=== PATIENT | male | born 1970 | race Two or more races ===

== ENCOUNTER 2016-05-14 08:13 | Emergency (ER) | payer OTHER ==
[~2016-05-14] VITALS: Ht 180.3 cm; Wt 61.2 kg
[2016-05-14] MEDS ORDERED: LORazepam Inj 2mg/ml 1ml IV ONE (08:30)
[2016-05-14] MEDS ORDERED: DiphenhydrAMINE 50mg/ml Inj IVP ONE (08:30)
[2016-05-14 08:50] VITALS: BP 158/88
[2016-05-14 09:00] LABS: BASOPHILS % (AUTO) 0.7 % (0.0-2.0); EOSINOPHILS % (AUTO) 1.4 % (0.0-3.0); LYMPHOCYTES % (AUTO) 23.1 % (20.0-45.0); MEAN CORPUSCULAR HEMOGLOBIN 33.1 PG (27.0-31.0); MEAN CORPUSCULAR HGB CONC 33.7 G/DL (32.0-36.0); MEAN CORPUSCULAR VOLUME 98 FL (80-99); MEAN PLATELET VOLUME 6.1 FL (6.5-10.1); MONOCYTES % (AUTO) 6.8 % (1.0-10.0); NEUTROPHILS % (AUTO) 67.9 % (45.0-75.0); PLATELET COUNT 288 K/UL (150-450); RED BLOOD COUNT 4.58 M/UL (4.70-6.10); RED CELL DISTRIBUTION WIDTH 10.7 % (11.6-14.8); WHITE BLOOD COUNT 9.7 K/UL (4.8-10.8)
[2016-05-14] MEDS ORDERED: Midazolam 2mg/2ml Inj IVP ONE (09:00)
--- NOTE | 2016-05-14 09:24 | Emergency Room Report ---
History of Present Illness General Chief Complaint: Abdominal Pain Source: Patient Present Illness HPI Patient presents with complaints of abdominal pain Patient arrives yelling and screaming in the waiting room and in his emergency room When talking to the patient, patient is able to calm his voice and speak appropriately, however again patient becomes extremely histrionic, and screaming when the nurse or myself leave the room. Other patient's in the emergency department became extremely agitated and yelling at the patient to calm down We did try to control the situation, however the patient continues to scream Yelling that he needs Dilaudid When attempting to speak to the patient further, he screams out that he will be calling [employer] and continues to make threatening remarks to staff and towards myself I attempted to tell the patient that we will be trying to control his pain, however I needed to obtain simple information regarding where the pain was He does point to his left lower abdomen And again when discussing this, patient is able to be calm and have appropriate speech. Patient was also allowed to bring his guide dog to the bedside However as the patient's dog began to wander in 2 different patient's rooms and posterior danger to other people in the emergency room, the staff requested that the guide dog, be under the care of the patient's Allergies: Coded Allergies: No Known Allergies (Unverified , 04/12/16) Patient History Past Medical History: see triage record Pertinent Family History: none Reviewed Nursing Documentation: PMH: Agreed, PSxH: Agreed Nursing Documentation-[facility] Past Medical History: No History, Except For Hx Gastrointestinal Problems: Yes - Diverticulitis; crohns Review of Systems All Other Systems: limited - Patient's history was initially somewhat difficult to obtain fully patient was histrionic, yelling and screaming, there was no reports of fevers, unknown regarding vomiting, unknown regarding diarrhea , Physical Exam Vital Signs Date Time Temp Pulse Resp B/P Pulse Ox O2 Delivery O2 Flow Rate FiO2 05/14/16 08:16 98.4 103 24 160/97 98 Room Air Sp02 EP Interpretation: reviewed, normal General Appearance: other - Patient presents extremely histrionic Head: normocephalic, atraumatic Eyes: bilateral eye other - Patient is blind ENT: normal pharynx, no angioedema Neck: supple, thyroid normal Respiratory: lungs clear, normal breath sounds Cardiovascular #1: regular rate, rhythm Gastrointestinal: other - Patient has a soft abdomen and normal bowel sounds, however subjectively diffuse discomfort and pain, Musculoskeletal: other - no obvious focal deficit Neurologic: alert, oriented x3, responsive Skin: no rash, warm/dry Medical Decision Making Diagnostic Impression: Primary Impression: Abdominal pain ER Course Given the patient's presentation and previous history multiple differentials are considered Including but not limited to diverticulitis Crohn's flare, appendicitis Patient had initially medications dispensed for his discomfort Upon further discussion patient has had fairly poor outpatient followup with specialty consultation And was recommended for the patient to be admitted He initially agreed to this after a fairly extensive discussion with the patient Upon time of admission was notified of the patient had pulled his IV out and wanted to go home After returning to her room patient states that he was under the impression that he was being discharged Patient's presentation today is extremely concerning His behavior throughout the stay at the end as well raises concerns I did make contact with the patient's HMO, and he was at the other facility recently as well with pancreatitis, I'm not clear the specifics of that hospitalization Patient's occurs highly to get set and be seen by his primary physician He states that he also has a pain management physician which was not initially divulged, Labs Test 05/14/16 08:45 White Blood Count 9.7 K/UL (4.8-10.8) Red Blood Count 4.58 M/UL (4.70-6.10) Hemoglobin 15.2 G/DL (14.2-18.0) Hematocrit 45.1 % (42.0-52.0) Mean Corpuscular Volume 98 FL (80-99) Mean Corpuscular Hemoglobin 33.1 PG (27.0-31.0) Mean Corpuscular Hemoglobin Concent 33.7 G/DL (32.0-36.0) Red Cell Distribution Width 10.7 % (11.6-14.8) Platelet Count 288 K/UL (150-450) Mean Platelet Volume 6.1 FL (6.5-10.1) Neutrophils (%) (Auto) 67.9 % (45.0-75.0) Lymphocytes (%) (Auto) 23.1 % (20.0-45.0) Monocytes (%) (Auto) 6.8 % (1.0-10.0) Eosinophils (%) (Auto) 1.4 % (0.0-3.0) Basophils (%) (Auto) 0.7 % (0.0-2.0) Sodium Level 143 mEQ/L (135-145) Potassium Level 3.8 mEQ/L (3.4-4.9) Chloride Level 101 mEQ/L (98-107) Carbon Dioxide Level 24 mEQ/L (20-30) Anion Gap 18 (5-15) Blood Urea Nitrogen 14 mg/dL (7-23) Creatinine 1.1 mg/dL (0.7-1.2) Estimat Glomerular Filtration Rate > 60 mL/min (>60) Glucose Level 116 mg/dL (74-106) Calcium Level 9.3 mg/dL (8.6-10.2) Total Bilirubin 0.4 mg/dL (0.0-1.2) Aspartate Amino Transf (AST/SGOT) 20 U/L (5-40) Alanine Aminotransferase (ALT/SGPT) 15 U/L (3-41) Alkaline Phosphatase 71 U/L (40-129) Total Protein 7.6 g/dL (6.6-8.7) Albumin 4.4 g/dL (3.5-5.2) Globulin 3.2 g/dL Albumin/Globulin Ratio 1.3 (1.0-2.7) Last Vital Signs Date Time Temp Pulse Resp B/P Pulse Ox O2 Delivery O2 Flow Rate FiO2 05/14/16 08:16 98.4 103 24 160/97 98 Room Air Status: improved Disposition: HOME, SELF-CARE Condition: Improved Scripts Famotidine (PEPCID) 20 Mg Tablet 20 MG ORAL BEDTIME, #7 TAB 0 Refills Prov: BUDDY RODRIGUEZ D.O. 05/14/16 Referrals: NON PHYSICIAN (PCP) BUDDY RODRIGUEZ D.O. May 14, 2016 09:24
[2016-05-14 09:29] LABS: ALANINE AMINOTRANSFERASE 15 U/L (3-41); ALBUMIN/GLOBULIN RATIO 1.3 (1.0-2.7); ANION GAP 18 (5-15); ASPARTATE AMINO TRANSFERASE 20 U/L (5-40); CALCIUM 9.3 mg/dL (8.6-10.2); CARBON DIOXIDE 24 mEQ/L (20-30); CHLORIDE 101 mEQ/L (98-107); CREATININE 1.1 mg/dL (0.7-1.2); GLOMERULAR FILTRATION RATE > 60 mL/min (>60); HEMOLYSIS 5; POTASSIUM 3.8 mEQ/L (3.4-4.9); SODIUM 143 mEQ/L (135-145); TOTAL PROTEIN 7.6 g/dL (6.6-8.7)
[2016-05-14] MEDS ORDERED: OMEPRAZOLE20 M2 ORAL (10:31)
[2016-05-14] MEDS ORDERED: ZOFRAN8 MG ORAL (10:31)
[2016-05-14] MEDS ORDERED: FAMOTIDINE20 MG ORAL (10:31)
[2016-05-14] MEDS ORDERED: ZYPREXA15 MG ORAL (10:31)
[2016-05-14] MEDS ORDERED: OXYCODON-ACETA1 EAC2 ORAL (10:31)
[2016-05-14] MEDS ORDERED: METRONIDAZOLE500 MG ORAL (10:31)
[2016-05-14] MEDS ORDERED: CYCLOBENZAPRINE10 MG ORAL (10:31)
[2016-05-14 10:34] VITALS: BP 122/69
[2016-05-14] MEDS ORDERED: PEPCID20 MG ORAL (10:57)
[2016-05-14 11:11] VITALS: BP 125/78
== END 2016-05-14 11:10 | disposition home or self-care (01) ==
LOC: EMR 08:26
DX: R10.32 Left lower quadrant pain (principal); Z87.19 Personal history of other diseases of the digestive system
CPT/HCPCS: 36415; 80053; 85025; 96361; 96374; 96375; 99284; J1170; J1200; J2250; J2405